=== PATIENT | female | born 1985 | race African-American/Black ===

== ENCOUNTER 2016-10-07 14:35 | Emergency (ER) | payer OTHER ==
--- NOTE | 2016-10-07 15:39 | XRAY Preliminary Report ---
Exam: XR Chest 2 View PA/LAT IMPRESSION: Normal 2-view chest radiography. [facility] SITE ID: [id number]
--- NOTE | 2016-10-07 15:53 | XRAY Report ---
EXAM: CHEST RADIOGRAPHY EXAM DATE: 10/07/2016 03:33 PM. CLINICAL HISTORY: Shortness of breath. Chest pressure. COMPARISON: None. TECHNIQUE: 2 views. FINDINGS: Lungs/Pleura: No focal opacities evident. No pleural effusion. No pneumothorax. Normal volumes. Mediastinum: Heart and mediastinal contours are unremarkable. Other: None. IMPRESSION: Normal 2-view chest radiography. [facility] Referring Provider Line: [phone] SITE ID: [id number]
[2016-10-07 15:56] LABS: BASOPHILS # (AUTO) 0.1 10^3/uL (0.0-0.1); BASOPHILS % (AUTO) 1.1 %; EOSINOPHILS # (AUTO) 0.1 10^3/uL (0.0-0.7); EOSINOPHILS % (AUTO) 2.1 %; HCT - HEMATOCRIT 36.6 % (37.0-47.0); LYMPHOCYTES % (AUTO) 35.9 %; MEAN CORPUSCULAR HEMOGLOBIN 25.9 pg (27.0-31.0); MEAN CORPUSCULAR HGB CONC 32.8 g/dL (32.0-36.0); MEAN PLATELET VOLUME 10.4 fL (7.9-10.8); MONOCYTES # (AUTO) 0.5 10^3/uL (0.0-1.0); NEUTROPHILS # (AUTO) 2.8 10^3/uL (1.5-6.6); NEUTROPHILS % (AUTO) 50.9 %; RED BLOOD COUNT 4.63 10^6/uL (4.20-5.40); RED CELL DISTRIBUTION WIDTH 14.2 % (12.0-15.0); UNCORRECTED WHITE BLOOD COUNT 5.4 x10^3/uL; WHITE BLOOD COUNT 5.4 x10^3/uL (4.8-10.8)
[2016-10-07 16:06] LABS: CALCIUM 9.4 mg/dL (8.5-10.3); CREATININE 0.8 mg/dL (0.4-1.0); POTASSIUM 3.5 mmol/L (3.5-5.0)
--- NOTE | 2016-10-07 16:41 | ED Physician Documentation ---
History of Present Illness - Stated complaint Stated Complaint: SOA - Chief complaint Chief Complaint: General - Additonal information Additional information: hx from pt 31 f for about a week she has occ had brief momenets where she feels like she cannot draw a deep breath inc freq today no CP not dyspneic the rest of the time no fever or cough no travel no smoking no OCP no leg swelling saw PMD for same today - it was nolted that these sx correlated with PVCs sx contineud to inc freq so pt came to the ER Review of Systems Constitutional: denies: Fever Cardiac: denies: Chest pain / pressure Respiratory: reports: Dyspnea (fleeting moments of not catching her bresth). denies: Cough GI: denies: Abdominal Pain : reports: LMP (now). 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 : None HEENT: None Psych: None Musculoskeletal: None Derm: None - Past Surgical History Past Surgical History: No - Present Medications Home Medications: Ambulatory Orders Medication Instructions Recorded Confirmed No Known Home Medications [No 10/07/16 10/07/16 Known Home Medications] - Allergies Allergies/Adverse Reactions: Allergies Allergy/AdvReac Type Severity Reaction Status Date / Time lactose Allergy Cramps Verified 10/07/16 14:46 shellfish derived Allergy Edema Verified 10/07/16 14:46 - Social History Does the pt smoke?: No Smoking Status: Never smoker Does the pt drink ETOH?: No Does the pt have substance abuse?: No - Immunizations Immunizations are current?: Yes PD ED PE NORMAL - Vitals Vital signs reviewed: Yes - Cardiac Cardiac: RRR, No murmur - Respiratory Respiratory: No respiratory distress, Clear bilaterally - Abdomen Abdomen: Soft, Non tender - Derm Derm: Normal color - Extremities Extremities: No deformity, No tenderness to palpate, Normal ROM s pain, No edema , No calf tenderness / cord - Neuro Neuro: Alert and oriented X 3 Results - Vitals Vitals: Vital Signs - 24 hr 10/07/16 14:39 Temperature 36 C L Heart Rate 82 Respiratory 18 Rate Blood Pressure 140/90 H O2 Saturation 100 Oxygen O2 Source Room air - EKG (time done) 1454 Rate: Rate (enter#) (78) Rhythm: NSR Intervals: No: Prolonged QT, Wide QRS Ischemia: Other (some diffusely flat T waves, no ST elev/depr/TWI) - Labs Labs: Laboratory Tests 10/07/16 10/07/16 15:30 15:30 WBC 5.4 RBC 4.63 Hgb 12.0 Hct 36.6 L MCV 79.0 L MCH 25.9 L MCHC 32.8 RDW 14.2 Plt Count 290 MPV 10.4 Neut # 2.8 Lymph # 2.0 [place] # 0.5 Eos # 0.1 Baso # 0.1 Absolute Nucleated RBC 0.00 Nucleated RBCs 0.0 Sodium 140 Potassium 3.5 Chloride 107 Carbon Dioxide 27 Anion Gap 6.0 BUN 12 Creatinine 0.8 Estimated GFR (MDRD) 100 Glucose 98 Calcium 9.4 - Rads (name of study) CXR Radiology: See rad report (nl) PD MEDICAL DECISION MAKING - ED course ED course: PERC neg Departure - Departure Disposition: Home, Self Care Clinical Impression: PVCs (premature ventricular contractions) Condition: Good Instructions: Premature Ventricular Contract About Follow-Up: RAY JC [Primary Care Provider] - Comments: In the ER today you did not have any major heart rhythm problems Your EKG does not suggest a heart attack You xray was normal The labs were normal too - normal electrolytes and not anemic It was noted at your PMDs office today that your symptoms correlate with extra beats from the bottom chambers of your heart called PVCs. As long as these occur just one at a time, PVCs are not dangerous Your doctor may want to run some more tests on you such as an ultrasound of your heart and a wear at home heart monitor Given the reassuring work up in the ER I think it is safe for you to go home for now and to follow up with your PMD as originally planned. Please avoid caffeine, energy drinks,, decongestants etc as these substances may increase your symptoms Please follow up with your PMD about your blood pressure - it was high today
[2016-10-07 16:58] VITALS: BP 134/84
== END 2016-10-07 16:58 | disposition home or self-care (01) ==
LOC: ED 14:35
DX: I49.3 Ventricular premature depolarization (principal)
CPT/HCPCS: 36415; 71020; 80048; 85025; 93005; 93010; 99283; 99284

== ENCOUNTER 2016-10-14 04:19 | Emergency (ER) | payer OTHER ==
[2016-10-14 05:07] LABS: BASOPHILS # (AUTO) 0.1 10^3/uL (0.0-0.1); BASOPHILS % (AUTO) 0.9 %; EOSINOPHILS # (AUTO) 0.1 10^3/uL (0.0-0.7); EOSINOPHILS % (AUTO) 2.1 %; HCT - HEMATOCRIT 35.4 % (37.0-47.0); HGB - HEMOGLOBIN 11.8 g/dL (12.0-16.0); LYMPHOCYTES # (AUTO) 2.8 10^3/uL (1.5-3.5); LYMPHOCYTES % (AUTO) 44.6 %; MEAN CORPUSCULAR HEMOGLOBIN 26.2 pg (27.0-31.0); MEAN CORPUSCULAR HGB CONC 33.3 g/dL (32.0-36.0); MEAN CORPUSCULAR VOLUME 78.6 fL (81.0-99.0); MEAN PLATELET VOLUME 10.4 fL (7.9-10.8); MONOCYTES # (AUTO) 0.6 10^3/uL (0.0-1.0); MONOCYTES % (AUTO) 9.6 %; NEUTROPHILS # (AUTO) 2.7 10^3/uL (1.5-6.6); NEUTROPHILS % (AUTO) 42.8 %; NUCLEATED RED BLOOD CELLS AUTO 0.1 /100WBC; RED BLOOD COUNT 4.51 10^6/uL (4.20-5.40); RED CELL DISTRIBUTION WIDTH 13.7 % (12.0-15.0); UNCORRECTED WHITE BLOOD COUNT 6.4 x10^3/uL; WHITE BLOOD COUNT 6.4 x10^3/uL (4.8-10.8)
--- NOTE | 2016-10-14 05:13 | ED Physician Documentation ---
PD HPI CHEST PAIN - Stated complaint Stated Complaint: PALPITATIONS - Chief complaint Chief Complaint: Cardiac - History obtained from History obtained from: Patient - History of Present Illness Timing - onset: Today Timing - onset during: Rest Timing - details: Gradual onset, Now resolved Associated symptoms: Palpitations Similar symptoms before: Work up / diagnostics, Treatment, Follow up Recently seen: Clinic, Emergency Dept - Additional information Additional information: Patient is a 31 year old female with no significant past medical history who is presenting to the emergency department for palpitations. Patient had been seen by her pmd and here in the er and was found to have an occasional pvc. Patient states that tonight she felt like she was having mulitpe episodes of it. she stated that her period just started again and didn't know if she was anemic, and that she read low potassium could cause it so she wanted to get her potassium checked. patient denied any chest pain or shortness of breath with the episode. Review of Systems Constitutional: denies: Fever, Chills Eyes: denies: Photophobia Ears: denies: Ear pain, Drainage/discharge Nose: denies: Rhinorrhea / runny nose, Congestion Cardiac: reports: Palpitations. 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 : None HEENT: None Psych: None Musculoskeletal: None Derm: None - Past Surgical History Past Surgical History: No - Present Medications Home Medications: Ambulatory Orders Medication Instructions Recorded Confirmed No Known Home Medications [No 10/07/16 10/14/16 Known Home Medications] - Allergies Allergies/Adverse Reactions: Allergies Allergy/AdvReac Type Severity Reaction Status Date / Time lactose Allergy Cramps Verified 10/14/16 05:02 shellfish derived Allergy Edema Verified 10/14/16 05:02 - Social History Does the pt smoke?: No Smoking Status: Never smoker Does the pt drink ETOH?: No Does the pt have substance abuse?: No - Immunizations Immunizations are current?: Yes - POLST Patient has POLST: No PD ED PE NORMAL - Vitals Vital signs reviewed: Yes (within normal limits) - General General: Alert and oriented X 3, No acute distress, Well developed/nourished - HEENT HEENT: Atraumatic, PERRL - Neck Neck: Supple, no meningeal sign, No JVD - Cardiac Cardiac: RRR, No murmur - Respiratory Respiratory: No respiratory distress, Clear bilaterally - Abdomen Abdomen: Soft, Non tender, Non distended - Derm Derm: Normal color, Warm and dry, No rash - Extremities Extremities: No deformity, No tenderness to palpate, Normal ROM s pain, No calf tenderness / cord - Neuro Neuro: Alert and oriented X 3, crm architect 2-12 intact, No motor deficit, No sensory deficit, Normal speech - Psych Psych: Normal mood, Normal affect Results - Vitals Vitals: Vital Signs - 24 hr 10/14/16 10/14/16 04:27 05:00 Temperature 36.6 C Heart Rate 64 63 Respiratory 16 19 Rate Blood Pressure 146/97 H 146/92 H O2 Saturation 100 100 Oxygen O2 Source Room air - EKG (time done) 0435 Rate: Rate (enter#) (62) Rhythm: NSR [place]: Normal Intervals: Normal [place] QRS: Normal Ischemia: Non specific changes - Labs Labs: Laboratory Tests 10/14/16 10/14/16 10/14/16 04:50 04:50 04:50 WBC 6.4 RBC 4.51 Hgb 11.8 L Hct 35.4 L MCV 78.6 L MCH 26.2 L MCHC 33.3 RDW 13.7 Plt Count 299 MPV 10.4 Neut # 2.7 Lymph # 2.8 [place] # 0.6 Eos # 0.1 Baso # 0.1 Absolute Nucleated RBC 0.01 Nucleated RBCs 0.1 Sodium 139 Potassium 3.6 Chloride 106 Carbon Dioxide 26 Anion Gap 7.0 BUN 14 Creatinine 0.8 Estimated GFR (MDRD) 100 Glucose 112 H Calcium 9.3 Phosphorus 4.6 Magnesium 1.8 Total Bilirubin 0.4 AST 17 ALT 12 Alkaline Phosphatase 116 Troponin I < 0.04 Total Protein 7.7 Albumin 4.1 Globulin 3.6 Albumin/Globulin Ratio 1.1 Lipase 27 TSH 10/14/16 04:50 WBC RBC Hgb Hct MCV MCH MCHC RDW Plt Count MPV Neut # Lymph # [place] # Eos # Baso # Absolute Nucleated RBC Nucleated RBCs Sodium Potassium Chloride Carbon Dioxide Anion Gap BUN Creatinine Estimated GFR (MDRD) Glucose Calcium Phosphorus Magnesium Total Bilirubin AST ALT Alkaline Phosphatase Troponin I Total Protein Albumin Globulin Albumin/Globulin Ratio Lipase TSH 7.65 H PD MEDICAL DECISION MAKING - ED course Complexity details: reviewed old records, reviewed results, re-evaluated patient , considered differential, d/w patient ED course: Patient was seen and examined at bedside. Patient was well appearing and in no acute distress. ekg was performed and within normal limits. labs were drawn and also were within normal limits. Patient showed no signs of pvcs or any other abnormalities. patient was a low risk patient and was stable for discharge with outpatient follow up. Patient was given ample time to ask questions. Patient required no further work up and was stble for discharge with outpatient follow up. Departure - Departure Disposition: 01 Home, Self Care Clinical Impression: PVCs (premature ventricular contractions), Intermittent palpitations Condition: Good Instructions: ED Palpitations Follow-Up: primary, care provider [Other] - Within 1 week Comments: Your diagnostics today were within normal limits. Due to the recurrence of your symptoms it is time for you to follow up with your pmd and possible set up a holter monitor. You may return to the emergency department at any time for chest pain, shortness of breath, new worsening or uncontrollable symptoms.
[2016-10-14 05:17] LABS: ALBUMIN/GLOBULIN RATIO 1.1 (1.0-2.2); BILIRUBIN,TOTAL 0.4 mg/dL (0.2-1.0); CALCIUM 9.3 mg/dL (8.5-10.3); CREATININE 0.8 mg/dL (0.4-1.0); MAGNESIUM 1.8 mg/dL (1.7-2.8); PHOSPHORUS 4.6 mg/dL (2.5-4.6); POTASSIUM 3.6 mmol/L (3.5-5.0); TOTAL PROTEIN 7.7 g/dL (6.7-8.2)
[2016-10-14 06:00] VITALS: BP 141/84
== END 2016-10-14 06:03 | disposition home or self-care (01) ==
LOC: ED 04:19
DX: I49.3 Ventricular premature depolarization (principal); R00.2 Palpitations
CPT/HCPCS: 36415; 80053; 83690; 83735; 84100; 84443; 84484; 85025; 93005; 93010; 99284

== ENCOUNTER 2016-10-24 11:23 | Emergency (ER) | payer OTHER ==
--- NOTE | 2016-10-24 12:54 | ED Physician Documentation ---
PD HPI CHEST PAIN - Stated complaint Stated Complaint: HEART PALPITATION - Chief complaint Chief Complaint: Cardiac - History obtained from History obtained from: Patient - History of Present Illness Timing - onset: How many weeks ago (2) Timing - duration: Weeks (2) Pain level max: 0 Pain level now: 0 Quality: Other (palpitations) Location: Substernal Radiation: Other (non-radiating) Improved by: Nothing Worsened by: Other (nothing) Associated symptoms: Shortness of air (Mild, States feels anxious when this occurs) Similar symptoms before: Diagnosis (PVC) - Additional information Additional information: She has been seen by her primary care provider in the ED 2 for same. She has been diagnosed with premature ventricular contractions. She is set to have a Holter monitor placed on Thursday. She is currently asymptomatic. She has had blood work 2 for this already. 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 : None HEENT: None Psych: None Musculoskeletal: None Derm: None - Past Surgical History Past Surgical History: No - Present Medications Home Medications: Ambulatory Orders Medication Instructions Recorded Confirmed No Known Home Medications [No 10/07/16 10/14/16 Known Home Medications] - Allergies Allergies/Adverse Reactions: Allergies Allergy/AdvReac Type Severity Reaction Status Date / Time lactose Allergy Cramps Verified 10/24/16 11:37 shellfish derived Allergy Edema Verified 10/24/16 11:37 - Social History Does the pt smoke?: No Smoking Status: Never smoker Does the pt drink ETOH?: No Does the pt have substance abuse?: No - Immunizations Immunizations are current?: Yes - POLST Patient has POLST: No PD ED PE NORMAL - Vitals Vital signs reviewed: Yes - General General: Alert and oriented X 3, No acute distress, Well developed/nourished - HEENT HEENT: Moist mucous membranes - Neck Neck: Supple, no meningeal sign - Cardiac Cardiac: RRR, Strong equal pulses - Respiratory Respiratory: No respiratory distress, Clear bilaterally - Abdomen Abdomen: Soft, Non tender, Non distended - Derm Derm: Warm and dry - Extremities Extremities: No calf tenderness / cord - Neuro Neuro: Alert and oriented X 3 - Psych Psych: Normal mood, Normal affect Results - Vitals Vitals: Vital Signs - 24 hr 10/24/16 10/24/16 11:34 13:12 Temperature 36 C L Heart Rate 67 87 Respiratory 20 16 Rate Blood Pressure 147/93 H 139/71 H O2 Saturation 100 97 Oxygen O2 Source Room air - EKG (time done) 1145 Rate: Rate (enter#) (66) Rhythm: NSR [place]: Normal Intervals: Normal [place] QRS: Normal Ischemia: Non specific changes Computer interpretation: Agree with computer PD MEDICAL DECISION MAKING - ED course Complexity details: reviewed old records, considered differential, d/w patient ED course: Patient is a 31-year-old female with premature ventricular contractions. No acute findings on today's examination. She has had blood work 2 for this already and has a Holter monitor scheduled for Thursday. Asymptomatic here. Will hold repeat laboratory testing. She did have an elevated thyroid- stimulating hormone on prior visit, will have her follow-up with her doctor for recheck of this. Patient counseled regarding signs and symptoms for which I believe and urgent re-evaluation would be necessary. Patient with good understanding of and agreement to plan and is comfortable going home at this time This document was made in part using voice recognition software. While efforts are made to proofread this document, sound alike and grammatical errors may occur. Departure - Departure Disposition: Home, Self Care Clinical Impression: Intermittent palpitations, PVCs (premature ventricular contractions) Condition: Good Instructions: ED Palpitations Follow-Up: MIRYAM WATERS [Primary Care Provider] - Within 1 week Comments: Make sure to supervisor opening and picking your heart monitor on Thursday as scheduled. You need to follow-up with your doctor as your thyroid-stimulating hormone was elevated on one of your blood tests over the past 2 weeks. You should have your thyroid further evaluated. Return if you worsen. Discharge Date/Time: 10/24/16 13:13
[2016-10-24 13:12] VITALS: BP 139/71
== END 2016-10-24 13:13 | disposition home or self-care (01) ==
LOC: ED 11:23
DX: I49.3 Ventricular premature depolarization (principal)
CPT/HCPCS: 93005; 93010; 99283; 99284

== ENCOUNTER 2017-07-12 21:59 | Emergency (ER) | payer OTHER ==
[2017-07-12] MEDS ORDERED: DEXAMETHASONE 10 MG/ML VIAL PO STA (22:06)
[2017-07-12] MEDS ORDERED: cephALEXin 250 MG CAPSULE PO STA (22:06)
--- NOTE | 2017-07-12 22:09 | ED Physician Documentation ---
History of Present Illness - Stated complaint Stated Complaint: RT JAW PX - History obtained from History obtained from: Patient - History of Present Illness Timing: How many days ago (1) Pain level max: 3 Pain level now: 3 Improved by: Nothing Worsened by: Nothing - Additonal information Additional information: Patient is a 31-year-old female who noticed slight swelling to the right lower lip yesterday, this is increased today, she is concerned that this could be an early abscess. Has had abscesses in other places on her body in the past, but never on the lip. Is not having a dental pain. No fevers. No new exposures to food or chemicals including lipsticks, chopsticks etc. Is not taking any medication at home. 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 : None HEENT: None Psych: None Musculoskeletal: None Derm: None - Past Surgical History Past Surgical History: No - Present Medications Home Medications: Ambulatory Orders Medication Instructions Recorded Confirmed Cephalexin [Keflex] 500 mg PO Q6H #28 capsule 07/12/17 predniSONE [Prednisone] 20 mg PO DAILY #4 tablet 07/12/17 - Allergies Allergies/Adverse Reactions: Allergies Allergy/AdvReac Type Severity Reaction Status Date / Time lactose Allergy Cramps Verified 07/12/17 22:10 shellfish derived Allergy Edema Verified 07/12/17 22:10 - Social History Does the pt smoke?: No Smoking Status: Never smoker Does the pt drink ETOH?: No Does the pt have substance abuse?: No - Immunizations Immunizations are current?: Yes - POLST Patient has POLST: No PD ED PE NORMAL - Vitals Vital signs reviewed: Yes - General General: Alert and oriented X 3, No acute distress - HEENT HEENT: Moist mucous membranes, Pharynx benign, Dentition benign, Other (1 x 1 cm area of swelling to the right lower lip, there is a slight induration felt in the swollen area. No significant erythema.) - Neck Neck: Supple, no meningeal sign - Cardiac Cardiac: RRR - Respiratory Respiratory: No respiratory distress, Clear bilaterally - Derm Derm: Warm and dry, No rash - Neuro Neuro: Alert and oriented X 3 Results - Vitals Vitals: Vital Signs - 24 hr 07/12/17 22:07 Temperature 36.6 C Heart Rate 80 Respiratory 16 Rate Blood Pressure 153/85 H O2 Saturation 99 Oxygen O2 Source Room air PD MEDICAL DECISION MAKING - ED course Complexity details: considered differential, d/w patient ED course: Patient is a 31-year-old female who presents to the emergency department with either an early cellulitis to the right lower lip but that may be turning into an abscess versus a localized angioedema. Unclear etiology. Given dexamethasone and Keflex here. She is comfortable going home at this time and will return if she worsens. Normal oropharyngeal exam. No stridor. No wheezing. No Eric's angina. No dental pain or tenderness. No drainable abscess. Patient counseled regarding signs and symptoms for which I believe and urgent re-evaluation would be necessary. Patient with good understanding of and agreement to plan and is comfortable going home at this time This document was made in part using voice recognition software. While efforts are made to proofread this document, sound alike and grammatical errors may occur. Departure - Departure Disposition: 01 Home, Self Care Clinical Impression: Angioedema of lips Qualifiers: Encounter type: initial encounter Qualified Code(s): T78.3XXA - Angioneurotic edema, initial encounter Cellulitis Qualifiers: Site of cellulitis: mouth Qualified Code(s): K12.2 - Cellulitis and abscess of mouth Condition: Good Instructions: ED Angioedema, ED Infec Skin Cellulitis Follow-Up: MIRYAM WATERS [Primary Care Provider] - Within 3 Days (for recheck) Prescriptions: Cephalexin [Keflex] 500 mg PO Q6H #28 capsule predniSONE [Prednisone] 20 mg PO DAILY #4 tablet Comments: Return if you worsen. This should improve throughout the night and tomorrow. It appears most likely to be a case of mild angioedema, however could be early infection. Take all antibiotics until gone. You can also take a dose of Benadryl when you get home tonight.
[2017-07-12 22:11] VITALS: BP 153/85
== END 2017-07-12 22:12 | disposition home or self-care (01) ==
LOC: ED 21:59
DX: T78.3XXA Angioneurotic edema, initial encounter (principal); K13.0 Diseases of lips
CPT/HCPCS: 99283; A9270